=== PATIENT | female | born 1950 | race Caucasian/White ===

== ENCOUNTER 2024-06-06 20:38 | Inpatient (IN) | payer MEDICARE, SELFPAY ==
[2024-06-06 20:45] VITALS: BP 134/62; PULSE 105; RESP 18; TEMP 36.8; O2SAT 98; BMI 16.1
[2024-06-06 21:43] LABS: Lactate Venous 1.3 mmol/L (0.4-2.0); VBG Base Excess 1.4 mmol/L (-2.4-2.3); VBG HCO3 25.7 mmol/L (23-30); VBG Oxygen Saturation 33.2 % (50-70); VBG PCO2 39.7 mmol/L (35-51); VBG PH 7.43 mmol/L (7.31-7.41); VBG PO2 23.7 mmol/L (28-40); VBG Total CO2 26.9 mmol/L (23-27)
[2024-06-06 21:44] LABS: Basophils # 0.1 K/mm3 (0-0.2); Basophils % 0.5 % (0.1-2.0); Eosinophils % 0.1 % (0.1-12.0); Lymphocytes # 1.8 K/mm3 (0.7-4.5); Lymphocytes % 16.6 % (10-50); Mean Corpuscular Volume 58.5 fl (81-99); Mean Platelet Volume 8.6 fl (7.4-10.4); Monocytes # 0.6 K/mm3 (0.1-1.0); Monocytes % 5.9 % (1.7-9.3); Neutrophils # 8.1 K/mm3 (1.8-7.8); Neutrophils % 76.4 % (37.0-80.0); Platelet Count 528 K/mm3 (142-424); Red Blood Count 2.82 M/mm3 (4.20-5.40); Red Cell Distribution Width 19.5 % (11.5-17.5); White Blood Count 10.6 K/mm3 (4.8-10.8)
--- NOTE | 2024-06-06 21:45 | HMH.EDGENADL ---
Discharge Plan Disposition Patient Disposition: Admitted Clinical Impressions Clinical Impression: Fall, Abdominal wall mass, Acute on chronic blood loss anemia Discharge ED Provider: Roni Lyons General Adult HPI General Chief complaint: Fall Stated complaint: loss of balance, weak, chills Time Seen by Provider: 06/06/24 21:05 Mode of Arrival: Wheelchair Source of Information: Patient and Relative Limitations: No Limitations Description of Symptoms (Recalled from ER Triage Doc. by RN): Pt presents for evaluation of frequent falls. Per family patient has fallen about 4 times over the last couple months. Pt also has an mass to her right abdomen that has not been evaluated that has bloody. Pt is not on any blood thinners. Pt has had c/o of left rib pain History of Present Illness HPI narrative: Please note that above description of symptoms, in this electronic medical record under categorization of recalled from ER triage doctor by RN are reflective of an initial nursing assessment, however, is not reflective of my full history and physical exam that was personally taken and clarified. Consequentially, this preceding description of symptoms, which may include the patient's categorized chief complaint in the EMR, do not reflect my personal clinical impression, and the ultimate description of history of present illness and patient stated complaints should be deferred to this section of the note. Unless stated otherwise or congruent with this section of the note, additional signs, symptoms, or incongruence should be interpreted as inaccurate with my clinical impression. Related Data Allergies Allergy/AdvReac Type Severity Reaction Status Date / Time No Known Allergies Allergy Verified 08/07/17 19:45 [facility] Disclaimer: The information contained in this section may have been updated after the patient was seen, as this information can be updated by other users. Social History Smoking Status: Never smoker alcohol intake: current alcohol intake frequency: holidays/special occasions only current occupational status: retired Travel in the last 8 weeks: None Other Medical History Have you received the Flu Vaccine for this season: No ROS Obtained: Yes All systems reviewed & no additional complaints except as documented Physical Exam General General appearance: alert and cachectic Head Head exam: atraumatic and normocephalic Eye Eye exam: Present normal appearance, PERRL and EOMI Neck Neck exam: Present normal inspection, full ROM and trachea midline Respiratory Respiratory exam: Absent respiratory distress, wheezes, stridor, accessory muscle use or prolonged expiratory phase Cardiovascular Cardiovascular exam: Present other (Pulses equal symmetric in upper and lower extremities) Abdominal Exam Abdominal exam: Present soft; Absent distention, tenderness or pulsatile mass Extremities Exam Extremities exam: Absent edema Neurological Exam Neurological exam: Present alert, oriented X3 and CN II-XII intact; Absent motor sensory deficit Skin Skin exam: Present warm, dry, pallor and other (Per MDM); Absent diaphoresis or erythema Medical Decision Making Medical Records Medical records reviewed: Yes I reviewed the patient's medical records. Screening: Per USPSTF and CDC recommendations, given the prevalence of disease in our region, it is our hospital?s policy to screen for HIV and viral Hepatitis for all patients aged 18 and over and those with ongoing risk factors. Cristopher Inquiry Pt receiving controlled substance: No Cristopher was queried for this patient: No Vital Signs: 06/06/24 20:45 06/06/24 23:18 Temperature 98.3 F 98.3 F Temperature Source Oral Pulse Rate 78 Pulse Rate [Right] 105 H Respiratory Rate 18 14 Blood Pressure 147/74 H Blood Pressure [Right Arm] 134/62 Blood Pressure Mean [Right Arm] 86 Blood Pressure Source [Right Arm] Automatic Cuff Blood Pressure Position Sitting Blood Pressure Position [Right Arm] Sitting 02 Sat by Pulse Oximetry 98 Oxygen Delivery Method Room Air Room Air Lab Data Lab Results 06/06/24 21:17: VBG pH 7.43 H, VBG pCO2 39.7, VBG pO2 23.7 L, VBG HCO3 25.7, VBG Total CO2 26.9, VBG O2 Saturation 33.2 L, VBG Base Excess 1.4, VBG Lactic Acid 1.3 06/06/24 21:35: WBC 10.6, RBC 2.82 L, Hgb 3.8 L*, Hct 16.5 L*, MCV 58.5 L, MCH 13.5 L*, MCHC 23.0 L, RDW 19.5 H, Plt Count 528 H, MPV 8.6, Neut % (Auto) 76.4, Lymph % (Auto) 16.6, [place] % (Auto) 5.9, Eos % (Auto) 0.1, Baso % (Auto) 0.5, Neut # (Auto) 8.1 H, Lymph # (Auto) 1.8, [place] # (Auto) 0.6, Eos # (Auto) 0.0, Baso # (Auto) 0.1, Sodium 132 L, Potassium 3.3 L, Chloride 97 L, Carbon Dioxide 28, Anion Gap 10.3, BUN 13, Creatinine 0.80, Estimated Creat Clear 35, Estimated GFR 70, Est GFR ( Amer) 85, Glucose 135 H, Calcium 8.1 L, Total Bilirubin 0.4, AST 22, ALT 11 L, Alkaline Phosphatase 113, Troponin I < 0.01, NT-Pro-B Natriuret Pep 2210 H, Total Protein 7.0, Albumin 3.1 L, Globulin 3.9 H, Albumin/Globulin Ratio 0.8 L, Blood Type A Positive, Blood Type Confirm A Positive, Antibody Screen Negative, Crossmatch ([facility]) See Detail 06/06/24 22:39: Urine Color Yellow, Urine Appearance Clear, Urine pH 6.0, Ur Specific [place] 1.010, Urine Protein Negative, Urine Glucose (UA) Negative, Urine Ketones Negative, Urine Blood Negative, Urine Nitrate Positive A, Urine Bilirubin Negative, Urine Urobilinogen 1.0, Ur Leukocyte Esterase 1+ A, Urine RBC None, Urine WBC 20-50, Ur Squamous Epith Cells Occasional, Urine Bacteria 2+ 06/06/24 21:35 06/06/24 21:35 Orders (Tests/Meds): ED MEDICATIONS Generic Name Dose Route Start Last Admin Trade Name Freq PRN Reason Stop Dose Admin Sodium Chloride 250 mls @ 25 mls/hr 06/06/24 22:15 Sod Chlor 0.9% 250ml Bag IV 06/07/24 22:14 .Q10H SULMA Sodium Chloride 10 ml 06/06/24 21:51 Sodium Chloride 0.9% 10ml Vial IV 07/06/24 21:50 NEEDED PRN to Dilute Lorazepam inj Discontinued Medications Generic Name Dose Route Start Last Admin Trade Name Freq PRN Reason Stop Dose Admin Lactated Ringer's 1,000 mls @ 999 mls/hr 06/06/24 21:17 06/06/24 21:50 Lactated Ringer's 1000 Ml Bag IV 06/06/24 22:17 999 mls/hr .Q1H1M ONE Administration Lorazepam 2 mg 06/06/24 21:51 06/06/24 22:22 Lorazepam 2mg/Ml Vial IV 06/06/24 21:52 Not Given ONCE ONE ORDERS Category Date Time Status Transfuse RBC's [Red Blood Cells] Stat BBK 06/06/24 21:35 Results Type and Screen Stat BBK 06/06/24 21:35 Results CBC w/Auto Diff [Complete Blood Count Auto Diff] Stat Lab 06/06/24 21:35 Completed CMP [Comprehensive Metabolic Panel] Stat Lab 06/06/24 21:35 Completed NT Pro Brain Natriuretic Pep. Stat Lab 06/06/24 21:35 Completed Prealbumin Stat Lab 06/06/24 21:35 Received Trop I [Troponin I] Stat Lab 06/06/24 21:35 Completed Troponin I Q3H Lab 06/07/24 00:30 Ordered Troponin I Q3H Lab 06/07/24 03:30 Ordered UA [Urinalysis and Microscopic] Stat Lab 06/06/24 22:39 Completed Blood Culture Stat Micro 06/06/24 22:00 Received Urine Culture Stat Micro 06/06/24 22:39 Received VBG [Venous Blood Gas] Stat RT 06/06/24 21:17 Completed Medical Decision Narrative: 74-year-old female no relevant medical history presenting with bleeding from masses. Patient states that she has had a mass on her abdomen this been bleeding for years at this point. States that she developed a mass on her left shoulder and on her right leg that have been bleeding for months to years as well. States that she has had syncopal episodes recently that she did not feel coming. Describes them more as near syncopal episodes where she does not lose consciousness, but hits the floor and does not have any prodrome. Has not seen anybody for these bleeding, fungating masses on her body. History obtained with patient and family. On arrival, patient hemodynamically stable, alert, oriented x4, appropriate, GCS 15, moving all extremities spontaneously, pupils equal and reactive to light. Full physical exam performed and significant for cachectic, chronically ill-appearing female who is pale, but no acute distress. She has bleeding, fungating mass on the right side of her abdomen, right side of her knee and left shoulder. Nontachycardic, conjunctival pallor. Differential includes chronic blood loss anemia, high risk syncope, malignancy, benign masses, metabolic abnormality, endocrinologic abnormality, sepsis, among others. Patient placed on continuous cardiac monitoring and continuous pulse ox with initial blood pressure 134/62, heart rate 105, saturation 98% on room air. Patient was given IV fluids for symptomatic management and correction of underlying abnormalities. Workup independently interpreted and significant for hemoglobin of 3.8, no white count, mild thrombocytosis. VBG nonactionable, chemistry largely nonactionable. Troponin negative, BNP elevated. Patient's UA with concern for UTI. ET imaging of the abdomen and pelvis was considered, but not deemed necessary at this time. Nonemergent, but I do feel patient probably needs this for preoperative management with dermatology. On reevaluation, patient resting comfortably. given patient presentation, workup, history, this most likely represents acute on chronic blood loss anemia with syncopal symptoms. I contacted every hospital in the state as well as some out of state, unable to get patient transferred for acute management. Because patient high risk for clinical decompensation, deemed appropriate for inpatient admission. Results were relayed to patient who voiced understanding and patient was agreeable to inpatient admission and management. Patient was admitted to the hospital for further definitive management. Furniture Upholsterer disclaimer Much of this encounter note is an electronic warehouse selector spoken language to printed text. Electronic warehouse selector of the spoken language may permit errors. Although I have reviewed the note, some errors may still exist. Critical Care Critical Care Time Critical Care Time: Yes (Hematologic) Attestation: On 06/06/24, the high probability of a clinically significant, sudden or life threatening deterioration of the following system(s) required my full and direct attention, intervention and personal management. The time I documented below is in addition to time spent performing reported procedures but includes the following listed in this critical care notation. Total Time Total Critical Care Time: 180
[2024-06-06 21:47] LABS: Mean Corpuscular Hemoglobin 13.5 pg (27.0-31.2)
[2024-06-06] MEDS: LACTATED RINGERS 1000ML 1,000 ML 999 ML IV (21:50)
[2024-06-06 21:51] LABS: Hematocrit 16.5 % (37.0-47.0)
[2024-06-06 21:52] LABS: Hemoglobin 3.8 g/dL (12.2-16.2)
[2024-06-06 21:53] LABS: Albumin Level 3.1 g/dl (3.5-5.0); Chloride 97 mmol/L (98-107); Sodium 132 mmol/L (136-145)
[2024-06-06 21:54] LABS: Potassium 3.3 mmoL/L (3.5-5.1)
[2024-06-06 21:56] LABS: Alanine Aminotransferase 11 U/L (12-78); Albumin/Globulin Ratio 0.8 (1.1-1.8); Alkaline Phosphatase 113 U/L (38-126); Anion Gap 10.3 mEq/L (5-15); Aspartate Amino Transferase 22 U/L (14-36); Bilirubin,Total 0.4 mg/dl (0.2-1.3); Blood Urea Nitrogen 13 mg/dl (7-17); Carbon Dioxide 28 mmol/L (22.0-30.0); Creatinine Clearance Estimated 35 mL/min (50-200); Estimated Glomerular Filt Rate 70 ml/min (>60); GFR (African American) 85 ML/MIN (>60); Globulin 3.9 g/dL (1.3-3.2)
--- NOTE | 2024-06-06 21:56 | PC.NURSE ---
Spoke with [place] transfer center, is at full capacity. on a long waitlist at this time. going to follow up with Dr. Lyons to see about moving further.
[2024-06-06 21:57] LABS: Calcium 8.1 mg/dl (8.4-10.2); Glucose 135 mg/dl (74-100)
--- NOTE | 2024-06-06 22:07 | PC.NURSE ---
[facility] has been called and are on a waitlist. notifying doctor.
--- NOTE | 2024-06-06 22:17 | PC.NURSE ---
Spoke with about a transfer, awaiting a call back at this time.
[2024-06-06 22:22] LABS: Troponin I < 0.01 ng/ml (0.00-0.034)
--- NOTE | 2024-06-06 22:29 | PC.NURSE ---
speaking with UC provider at this time
[2024-06-06 22:44] LABS: Microscopic, Urine URINE MICROSCOPIC (MICROSCOPIC)
[2024-06-06 22:45] LABS: Appearance,Urine CLEAR (Clear); Bilirubin,Urine Negative (Negative); Blood, Urine Negative (Negative); Color,Urine YELLOW (Yellow); Glucose,Urine (UA) Negative (Negative); Ketones,Urine Negative (Negative); Leukocyte Esterase,Urine 1+ (Negative); Nitrate,Urine POSITIVE (Negative); Protein,Urine Negative (Negative)
--- NOTE | 2024-06-06 22:50 | PC.NURSE ---
Blood will be ready in approx 25 minutes. [id number]
[2024-06-06 22:53] LABS: Bacteria,Urine 2+ /lpf; Squamous Epithelial Cell,Urine Occasional #/hpf (0-5); WBC,Urine 20-50 #/hpf (0-3)
[2024-06-06 23:07] LABS: NT Pro Brain Natriuretic Pep. 2210 pg/mL (0-125)
--- NOTE | 2024-06-06 23:13 | PC.NURSE ---
report given to Clare GOLDMAN on the floor
[2024-06-06 23:18] VITALS: BP 147/74; PULSE 78; RESP 14; TEMP 36.8; O2SAT 96
[2024-06-06 23:33] VITALS: BP 157/78; PULSE 87; RESP 16; TEMP 36.7; O2SAT 95; BMI 16.0
[2024-06-06 23:47] VITALS: BP 152/77; PULSE 89; RESP 18; TEMP 36.8; O2SAT 95
[2024-06-06] MEDS: 0.9 % SODIUM CHLORIDE 250 ML 25 ML IV (23:50)
[2024-06-06 23:55] VITALS: BP 150/69; PULSE 86; RESP 18; TEMP 36.8; O2SAT 98
[2024-06-07] VITALS (30 sets, daily range): BP systolic 136–163; BP diastolic 65–84; PULSE 67–88; RESP 18–20; TEMP 36.4–37.1; O2SAT 96–100; BMI 16.0
[2024-06-07 00:40] LABS: Troponin I < 0.01 ng/ml (0.00-0.034)
[2024-06-07] MEDS: CEFTRIAXONE 1 GM 1 GM in 0.9 % SODIUM CHLORIDE 50 ML IV (02:30)
--- NOTE | 2024-06-07 02:47 | P.HP_ITS ---
<Statement entered by Leroy Villafuerte MD - 06/09/24 22:59> Personally evaluated patient and agree with plan of care as outlined by the [employer] FOLD OPERATOR. History of Present Illness *Admission Date: 07/08/24 *Reason for visit:: Weakness severe anemia falling, skin lesion/growth *History of present illness: This very pleasant 74-year-old female who looks quite frail, has been brought in by 2 of her granddaughters because she has been falling and is weak and pale. Noting also 3 areas of significant skin growth with weeping and 1 area actually bleeding some. Patient notes that she has not been seen by a doctor since giving childbirth.. She notes that the lesions started small and have continued to grow for quite some time. The patient lives at home with her who has Parkinson's but he does help her get around since she has become weak needing help to walk. Patient is noted being short of breath with low O2 saturations just sitting and talking now. Hemoglobin noted at 3.8. After speaking with the ER physician who tried multiple hospitals. Finding that there are no beds available. Have agreed with him that the patient needs to be admitted for blood transfusion. Plan at this time is to give the patient 2 units of blood we will recheck her level at that time and physical status. Will then consider whether another unit or 2 would be required. Patient is requiring oxygen at this time to keep her saturations up when she talks., Also will contact general surgery question to evaluate the 1 wound on her right abdomen that is a weeping and bleeding some.. Question to be able to remove part of this to where the bleeding can be controlled are cauterized. And that a biopsy may be done. With the patient requiring a blood transfusion has placed that as being a priority tonight and have not thought to do any other excessive imaging or scanning at this time. There may be a very good chance that this has metastasized to other parts of her body. Question whether or not a bone marrow biopsy would be needed. To be able to evaluate whether red blood cells are being produced are hemolyzed. Noting taking care of the patient she is extremely pleasant and quite a polite person who does not appear to be in serious threat and denies any pain at this time. [facility] Disclaimer: The information contained in this section may have been updated after the patient was seen, as this information can be updated by other users. Medical History (Updated 06/07/24 @ 03:05 by Edi Krause APRN) Acute on chronic blood loss anemia Severe anemia Social History (Updated 06/07/24 @ 00:06 by Roni Lyons MD) Smoking Status: Never smoker alcohol intake: current alcohol intake frequency: holidays/special occasions only current occupational status: retired Travel in the last 8 weeks: None Have you lived/traveled outside [place] in past 30 days?: No Contact w/someone who lives/traveled outside US past 30 days?: No Exposure to someone with infectious disease in past 14 days?: No Do you have a fever (greater than 100.4 F or 38 C)?: No Have you tested positive for COVID-19: No Exposed to someone with COVID-19 in past 14 days?: No Do you have a sore throat?: No Do you have a cough?: No Do you have any weakness?: Yes Do you have any diarrhea?: No Are you experiencing any unusual bleeding?: No Do you have any muscle aches/pain?: No Do you have any abdominal pain?: No Are you experiencing loss of taste or smell?: No Other Medical History Have you received the Flu Vaccine for this season: No Have you received the Pneumonia Vaccine: No Review of Systems Review of Systems Review of systems:: pertinent systems reviewed and negative unless documented below Constitutional Constitutional: Reports as per HPI Eyes Eyes: Reports as per HPI ENT Ears, Nose, Mouth, and Throat: Reports as per HPI *Cardiovascular Cardiovascular: Reports as per HPI *Respiratory Respiratory: Reports as per HPI *Gastrointestinal Gastrointestinal: Reports as per HPI *Genitourinary Genitourinary: Reports as per HPI *Musculoskeletal Musculoskeletal: Reports as per HPI Integumentary/Breasts Skin/Breast: Reports as per HPI *Neurologic Neurologic: Reports as per HPI Psychiatric Psychiatric: Reports as per HPI Endocrine Endocrine: Reports as per HPI Hematologic/Lymphatic Hematologic/Lymphatic: Reports as per HPI Allergic/Immunologic Allergic/Immunologic: Reports as per HPI Meds Home Medications and Allergies Home Medications ?Medication ?Instructions ?Recorded ?Confirmed ?Type No Known Home Medications 06/07/24 06/07/24 History New Prescriptions to Start Prescriptions: Allergies Allergy/AdvReac Type Severity Reaction Status Date / Time No Known Allergies Allergy Verified 08/07/17 19:45 Exam Data for Last 24 hours Vital signs and Labs for Last 24 Hours: Temp Pulse Resp BP Pulse Ox O2 Del Method O2 Flow Rate 98.2 F 79 18 155/84 H 100 Room Air 2 06/07/24 01:55 06/07/24 02:25 06/07/24 02:25 06/07/24 02:25 06/07/24 02:25 06/06/24 23:33 06/06/24 23:06 Laboratory Results - last 24 hr 06/06/24 21:17: VBG pH 7.43 H, VBG pCO2 39.7, VBG pO2 23.7 L, VBG HCO3 25.7, VBG Total CO2 26.9, VBG O2 Saturation 33.2 L, VBG Base Excess 1.4, VBG Lactic Acid 1.3 06/06/24 21:35: WBC 10.6, RBC 2.82 L, Hgb 3.8 L*, Hct 16.5 L*, MCV 58.5 L, MCH 13.5 L*, MCHC 23.0 L, RDW 19.5 H, Plt Count 528 H, MPV 8.6, Neut % (Auto) 76.4, Lymph % (Auto) 16.6, [place] % (Auto) 5.9, Eos % (Auto) 0.1, Baso % (Auto) 0.5, Josh t # (Auto) 8.1 H, Lymph # (Auto) 1.8, [place] # (Auto) 0.6, Eos # (Auto) 0.0, Baso # (Auto) 0.1, Sodium 132 L, Potassium 3.3 L, Chloride 97 L, Carbon Dioxide 28, Anion Gap 10.3, BUN 13, Creatinine 0.80, Estimated Creat Clear 35, Estimated GFR 70, Est GFR ( Amer) 85, Glucose 135 H, Calcium 8.1 L, Total Bilirubin 0.4, AST 22, ALT 11 L, Alkaline Phosphatase 113, Troponin I < 0.01, NT-Pro-B Natriuret Pep 2210 H, Total Protein 7.0, Albumin 3.1 L, Globulin 3.9 H, Albumin/Globulin Ratio 0.8 L, Blood Type A Positive, Blood Type Confirm A Positive, Antibody Screen Negative, Crossmatch ([facility]) See Detail 06/06/24 22:39: Urine Color Yellow, Urine Appearance Clear, Urine pH 6.0, Ur Specific [place] 1.010, Urine Protein Negative, Urine Glucose (UA) Negative, Urine Ketones Negative, Urine Blood Negative, Urine Nitrate Positive A, Urine Bilirubin Negative, Urine Urobilinogen 1.0, Ur Leukocyte Esterase 1+ A, Urine RBC None, Urine WBC 20-50, Ur Squamous Epith Cells Occasional, Urine Bacteria 2+ 06/07/24 00:15: Troponin I < 0.01 I & O for Last 24 hours: Intake & Output 06/04/24 06/05/24 06/06/24 06/07/24 05:59 05:59 05:59 05:59 Intake Total 250 / 250 Output Total 0 / 0 Balance 250 / 250 Weight 99 lb 6.4 oz Constitutional Constitutional: mild distress and thin *Routine HEENT Exam Head: Present normocephalic and atraumatic Eye: Present EOMI, PERRL and normal accommodation ENT: Present mucous membranes moist Comments: Pale mucous membranes, pale lips *Routine Neck Exam Neck: Present supple and full ROM Routine Chest/Breast/Axilla Exam Comments: No chest wall tenderness or injury has been found *Routine Respiratory Exam Respiratory: Present accessory muscle use, diminished air movement, normal respiratory effort and able to speak in complete sentences *Routine Cardiovascular Exam Cardiovascular: Present RRR, Normal S1, Normal S2 and murmur Comments: Send no significant holistic cardiac murmur *Routine Abdominal Exam Abdominal: Present soft and normoactive bowel sounds Comments: No tenderness found. *Routine Rectal Exam Rectal:: deferred *Routine Genitalia Exam Genitalia:: deferred *Routine Extremities Exam Extremities: Present pulses intact Comments: Patient is able to walk if given assistance. Can move all extremities Routine Back/Spine/Pelvis Exam Back/Spine: Present full ROM and CVA tenderness Comments: No significant back pain was noted no decrease in ability to ambulate sit move without assistance related to back pain *Routine Skin Exam Skin: Present intact, dry, warm and wounds Comments: Noting that the patient has large skin growths noted on posterior left shoulder right side of the abdomen these skin growths are bulging areas of flesh the one on the abdomen is weeping clear liquid but also some blood. Also on right thigh an area slightly about the same size as the left shoulder extremely elevated almost could call cauliflower looking in observing visually, skin color is not red no signs of cellulitis at this time *Routine Neurological Exam Neurological: Present alert, oriented X3, CN II-XII intact, normal tone, vision grossly intact, hearing grossly intact and normal speech Comments: Patient shows no neurological deficits Routine Psychiatric Exam Psychiatric: Present cooperative, good insight and good judgment Comments: Patient is very calm, stoic ask questions well does not appear to be in distress, she had a conversation with her family and wants to remain a no code H&P: Result Impressions 1. Severe anemia requiring blood transfusions also due to hypoxia and decreased oxygen carrying ability 2. Several advanced skin lesions questionable carcinoma with probable meta test assess Assessment and Plan *Assessment and plan (1) Severe anemia: Status: Acute Category: Medical Code(s): D64.9 - Anemia, unspecified (2) Skin cancer: Status: Acute Category: Medical Code(s): C44.90 - Unspecified malignant neoplasm of skin, unspecified (3) Fall: Status: Acute Qualifiers: Encounter type: initial encounter Qualified Code(s): W19.XXXA - Unspecified fall, initial encounter Category: Medical Code(s): W19.XXXA - Unspecified fall, initial encounter (4) Hypoxia: Status: Acute Category: Medical Code(s): R09.02 - Hypoxemia (5) Cardiac murmur: Status: Acute Category: Medical Code(s): R01.1 - Cardiac murmur, unspecified Plan 1. Patient was requiring help for activities of daily living now., This is probably related to the severe anemia as she is becoming weak probably hypoxia and now is starting to have falls, It is noted the patient has not seen a medical provider for decades. 2. Skin lesions probably skin cancer with advanced as they are would say there is systemic involvement, may be related to the anemia related to bone marrow involvement showing no signs of bruising or active bleeding so do not believe there has hemolysis 3. Will consult general surgery seeing about getting a biopsy. Question whether or not if there is any bleeding at that skin lesion if any type of revision can be done. It is noted that the emergency room tried to find a higher level of care to evaluate this potential cancer but there was no beds available after checking with several hospitals. For this reason the patient has been admitted here and we will start the workup provide the patient with at least 2 units of blood reevaluate and may consider more units after that period of time 4. Due to is a significant cardiac murmur and this low blood count with hypoxia will also consult cardiology.
[2024-06-07 03:52] LABS: Troponin I < 0.01 ng/ml (0.00-0.034)
--- NOTE | 2024-06-07 06:18 | PC.NURSE ---
transfused 2 units this shift with repeat labs at 0730, lab notified to delay 0600 for that time to save the patient an extra poke. see bio for wound descriptions, several - patient ambulates with cane x1. upon arrival to floor o2 dropping to 70/80's at rest in bed - applied 2L NC. at 0540 patient is on RA per request. pt refused SCDs, but theyre at bedside. HTN t/o shift. unable to update medical history because patient states she has none and doesn't go to the dr . two granddaughters at bedside t/o shift
[2024-06-07 10:56] LABS: Basophils # 0.1 K/mm3 (0-0.2); Basophils % 0.6 % (0.1-2.0); Eosinophils % 0.1 % (0.1-12.0); Hematocrit 24.3 % (37.0-47.0); Lymphocytes # 1.3 K/mm3 (0.7-4.5); Mean Corpuscular HGB Conc 28.4 g/dL (31.8-35.4); Mean Corpuscular Hemoglobin 19.2 pg (27.0-31.2); Mean Corpuscular Volume 67.7 fl (81-99); Mean Platelet Volume 8.5 fl (7.4-10.4); Monocytes # 0.6 K/mm3 (0.1-1.0); Monocytes % 6.9 % (1.7-9.3); Neutrophils # 6.5 K/mm3 (1.8-7.8); Neutrophils % 76.3 % (37.0-80.0); Platelet Count 430 K/mm3 (142-424); Red Blood Count 3.59 M/mm3 (4.20-5.40); White Blood Count 8.6 K/mm3 (4.8-10.8)
[2024-06-07 11:03] LABS: Red Cell Distribution Width 27.2 % (11.5-17.5)
[2024-06-07 11:25] LABS: Hemoglobin 6.9 g/dL (12.2-16.2)
[2024-06-07 11:29] LABS: Alanine Aminotransferase 11 U/L (12-78); Albumin Level 2.8 g/dl (3.5-5.0); Albumin/Globulin Ratio 0.8 (1.1-1.8); Alkaline Phosphatase 92 U/L (38-126); Anion Gap 7.3 mEq/L (5-15); Aspartate Amino Transferase 20 U/L (14-36); Bilirubin,Total 1.9 mg/dl (0.2-1.3); Blood Urea Nitrogen 10 mg/dl (7-17); Calcium 7.9 mg/dl (8.4-10.2); Carbon Dioxide 26 mmol/L (22.0-30.0); Chloride 102 mmol/L (98-107); Creatinine Clearance Estimated 35 mL/min (50-200); Estimated Glomerular Filt Rate 70 ml/min (>60); GFR (African American) 85 ML/MIN (>60); Globulin 3.7 g/dL (1.3-3.2); Glucose 93 mg/dl (74-100); Magnesium 1.6 mg/dl (1.6-2.3); Potassium 3.3 mmoL/L (3.5-5.1); Sodium 132 mmol/L (136-145); Total Protein,Serum 6.5 g/dl (6.3-8.2)
[2024-06-07] MEDS: ACETAMINOPHEN 325MG TAB 650 MG PO (11:39)
--- NOTE | 2024-06-07 12:27 | CT_ITS ---
PROCEDURE INFORMATION: Exam: CT Abdomen And Pelvis With Contrast Exam date and time: 06/07/2024 1:31 PM Age: 74 years old Clinical indication: Other: Eval for mets, large skin lesions suspect scc TECHNIQUE: Imaging protocol: Computed tomography of the abdomen and pelvis with contrast. Radiation optimization: All CT scans at this facility use at least one of these dose optimization techniques: automated exposure control; mA and/or kV adjustment per patient size (includes targeted exams where dose is matched to clinical indication); or iterative reconstruction. Contrast material: ISOVUE; Contrast volume: 75 ml; Contrast route: IV; COMPARISON: CT CHEST W CON 04/11/2024 13:31 FINDINGS: Liver: 7.5 x 7.2 x 6.8 cm low-attenuation right lobe liver mass. Gallbladder and biliary ducts: Stones in the gallbladder. Pancreas: Normal. No ductal dilation. Spleen: Normal. No splenomegaly. Adrenal glands: Normal. No mass. Kidneys and ureters: Normal. No hydronephrosis. Stomach and bowel: Unremarkable. No obstruction. No mucosal thickening. Appendix: No evidence of appendicitis. Intraperitoneal space: Unremarkable. No free air. No significant fluid collection. Vasculature: Atherosclerosis. Lymph nodes: Unremarkable. No enlarged lymph nodes. Urinary bladder: Unremarkable as visualized. Reproductive: 4.5 x 6.2 x 6.2 cm right paramidline fluid attenuation structure posterior to the uterus. Bones/joints: Osteopenia. Soft tissues: 1.7 x 5.9 x 6.8 cm lobulated soft tissue mass in the right anterolateral lower abdominal skin and subcutaneous fat. IMPRESSION: 1. 1.7 x 5.9 x 6.8 cm lobulated soft tissue mass in the right anterolateral lower abdominal skin and subcutaneous fat. 2. 7.5 x 7.2 x 6.8 cm low-attenuation right lobe liver mass. In a low-risk patient, further evaluation with non-emergent liver MRI is recommended. In a high-risk patient, further evaluation with non-emergent liver MRI or biopsy is recommended. If biopsy is pursued, core biopsy is preferred over fine-needle aspiration. (Reference: [place]) 3. 4.5 x 6.2 x 6.2 cm right paramidline fluid attenuation structure posterior to the uterus may represent an adnexal cyst. Further evaluation with non-emergent ultrasound is recommended to characterize. (Reference: [facility]) 4. Stones in the gallbladder. 5. Additional chronic/nonemergent findings as detailed above. 6. Lower thoracic findings reported on dedicated CT chest. REFERENCES: 1. Shaan KINSEY, et al. Management of Incidental Liver Lesions on CT: A White Paper of the ACR Incidental Findings Committee. J Am Isabel Radiol. 2017;14(11):0787-3102. 2. Cj et al. Management of Incidental Adnexal Findings on CT and MRI: A White Paper of the ACR Incidental Findings Committee, J Am Isabel Radiol. 2019;17(2):248-254.
--- NOTE | 2024-06-07 12:27 | CT_ITS ---
PROCEDURE INFORMATION: Exam: CT Chest With Contrast; Diagnostic Exam date and time: 06/07/2024 1:31 PM Age: 74 years old Clinical indication: Other: Eval for mets, large skin lesions suspect scc TECHNIQUE: Imaging protocol: Diagnostic computed tomography of the chest with contrast. Radiation optimization: All CT scans at this facility use at least one of these dose optimization techniques: automated exposure control; mA and/or kV adjustment per patient size (includes targeted exams where dose is matched to clinical indication); or iterative reconstruction. Contrast material: ISOVUE; Contrast volume: 75 ml; Contrast route: IV; COMPARISON: CT ABDOMEN PELVIS W CON 04/11/2024 13:31 FINDINGS: Lungs: 3 mm noncalcified nodule in the base of the right upper lobe (series 5, image 38). Streaky airspace disease in the bilateral lower lobes, right middle lobe and lingula. Pleural spaces: Small pleural effusions. Heart: No cardiomegaly. Lymph nodes: Unremarkable. No enlarged lymph nodes. Vasculature: Atherosclerosis. Bones/joints: Osteopenia. Soft tissues: Unremarkable. IMPRESSION: 1. 3 mm noncalcified nodule in the base of the right upper lobe. Fleischner Society follow up recommendations for incidental nodules are not indicated. Follow up per the patient's medical condition. 2. Streaky airspace disease in the bilateral lower lobes, right middle lobe and lingula concerning for pneumonia. 3. Small pleural effusions. 4. Additional chronic/nonemergent findings as detailed above.
[2024-06-07] MEDS: IOPAMIDOL-370 (76%);100ML BOTTLE 75 ML IV (13:32)
--- NOTE | 2024-06-07 16:55 | EXP.DC.SUM ---
General Admission date:: 06/06/24 HPI HPI HPI: This very pleasant 74-year-old female who looks quite frail, has been brought in by 2 of her granddaughters because she has been falling and is weak and pale. Noting also 3 areas of significant skin growth with weeping and 1 area actually bleeding some. Patient notes that she has not been seen by a doctor since giving childbirth.. She notes that the lesions started small and have continued to grow for quite some time. The patient lives at home with her who has Parkinson's but he does help her get around since she has become weak needing help to walk. Patient is noted being short of breath with low O2 saturations just sitting and talking now. Hemoglobin noted at 3.8. After speaking with the ER physician who tried multiple hospitals. Finding that there are no beds available. Have agreed with him that the patient needs to be admitted for blood transfusion. Plan at this time is to give the patient 2 units of blood we will recheck her level at that time and physical status. Will then consider whether another unit or 2 would be required. Patient is requiring oxygen at this time to keep her saturations up when she talks., Also will contact general surgery question to evaluate the 1 wound on her right abdomen that is a weeping and bleeding some.. Question to be able to remove part of this to where the bleeding can be controlled are cauterized. And that a biopsy may be done. With the patient requiring a blood transfusion has placed that as being a priority tonight and have not thought to do any other excessive imaging or scanning at this time. There may be a very good chance that this has metastasized to other parts of her body. Question whether or not a bone marrow biopsy would be needed. To be able to evaluate whether red blood cells are being produced are hemolyzed. Noting taking care of the patient she is extremely pleasant and quite a polite person who does not appear to be in serious threat and denies any pain at this time. Hospital Course Hospital Course Hospital Course: Maria Alejandra Craig is a 74-year-old female who presented with progressive generalized weakness and was admitted for severe symptomatic microcytic anemia. 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 Patient admits that she has had significant sun exposure, and has used tanning beds frequently. ? There are multiple lesions of what seems to be squamous cell carcinoma over her arm, abdomen, lower extremity. ? CT abdomen/pelvis revealed a 7 cm lesion in her liver likely representing metastasis. ? Initial hemoglobin 3.6, improved to 6.9 after 2 units of PRBC transfusion. She was given additional 1 unit PRBC. Weakness improved, ambulating hallways without issues. ? After extensive discussion about further evaluation and management suspected metastatic cancer versus hospice, patient and family ultimately decided to pursue hospice care. ? Case management consulted, will reach out to patient on Sunday for further discussion about hospice. Total time spent on discharge: 32 minutes on chart review, counseling, documentation, and direct care with patient. Exam Data for Last 24 hours Vital signs and Labs for Last 24 Hours: Temp Pulse Resp BP Pulse Ox O2 Del Method O2 Flow Rate 98.3 F 69 18 153/70 H 98 Room Air 2 06/07/24 16:15 06/07/24 16:15 06/07/24 16:15 06/07/24 16:15 06/07/24 16:15 06/07/24 15:00 06/07/24 05:00 Laboratory Results - last 24 hr 06/06/24 21:17: VBG pH 7.43 H, VBG pCO2 39.7, VBG pO2 23.7 L, VBG HCO3 25.7, VBG Total CO2 26.9, VBG O2 Saturation 33.2 L, VBG Base Excess 1.4, VBG Lactic Acid 1.3 06/06/24 21:35: WBC 10.6, RBC 2.82 L, Hgb 3.8 L*, Hct 16.5 L*, MCV 58.5 L, MCH 13.5 L*, MCHC 23.0 L, RDW 19.5 H, Plt Count 528 H, MPV 8.6, Neut % (Auto) 76.4, Lymph % (Auto) 16.6, [place] % (Auto) 5.9, Eos % (Auto) 0.1, Baso % (Auto) 0.5, Neut # (Auto) 8.1 H, Lymph # (Auto) 1.8, [place] # (Auto) 0.6, Eos # (Auto) 0.0, Baso # (Auto) 0.1, Sodium 132 L, Potassium 3.3 L, Chloride 97 L, Carbon Dioxide 28, Anion Gap 10.3, BUN 13, Creatinine 0.80, Estimated Creat Clear 35, Estimated GFR 70, Est GFR ( Amer) 85, Glucose 135 H, Calcium 8.1 L, Total Bilirubin 0.4, AST 22, ALT 11 L, Alkaline Phosphatase 113, Troponin I < 0.01, NT-Pro-B Natriuret Pep 2210 H, Total Protein 7.0, Albumin 3.1 L, Globulin 3.9 H, Albumin/Globulin Ratio 0.8 L, Blood Type A Positive, Blood Type Confirm A Positive, Antibody Screen Negative, Crossmatch ([facility]) See Detail 06/06/24 22:39: Urine Color Yellow, Urine Appearance Clear, Urine pH 6.0, Ur Specific [place] 1.010, Urine Protein Negative, Urine Glucose (UA) Negative, Urine Ketones Negative, Urine Blood Negative, Urine Nitrate Positive A, Urine Bilirubin Negative, Urine Urobilinogen 1.0, Ur Leukocyte Esterase 1+ A, Urine RBC None, Urine WBC 20-50, Ur Squamous Epith Cells Occasional, Urine Bacteria 2+ 06/07/24 00:15: Troponin I < 0.01 06/07/24 03:17: Troponin I < 0.01 06/07/24 10:38: WBC 8.6, RBC 3.59 L D, Hgb 6.9 L D, Hct 24.3 L, MCV 67.7 L, MCH 19.2 L D, MCHC 28.4 L, RDW 27.2 H* D, Plt Count 430 H, MPV 8.5, Neut % (Auto) 76.3, Lymph % (Auto) 15.0, [place] % (Auto) 6.9, Eos % (Auto) 0.1, Baso % (Auto) 0.6, Neut # (Auto) 6.5, Lymph # (Auto) 1.3, [place] # (Auto) 0.6, Eos # (Auto) 0.0, Baso # (Auto) 0.1, Sodium 132 L, Potassium 3.3 L, Chloride 102, Carbon Dioxide 26, Anion Gap 7.3, BUN 10, Creatinine 0.80, Estimated Creat Clear 35, Estimated GFR 70, Est GFR ( Amer) 85, Glucose 93 D, Calcium 7.9 L, Magnesium 1.6, Total Bilirubin 1.9 H, AST 20, ALT 11 L, Alkaline Phosphatase 92, Total Protein 6.5, Albumin 2.8 L, Globulin 3.7 H, Albumin/Globulin Ratio 0.8 L I & O for Last 24 hours: Intake & Output 06/04/24 06/05/24 06/06/24 06/07/24 23:59 23:59 23:59 23:59 Intake Total 0 / 0 1220 / 1220 Output Total 0 / 0 Balance 0 / 0 1220 / 1220 Weight 45.087 kg 45.087 kg Microbiology Reports for the Last 24 Hours: Microbiology 06/06/24 22:39 Urine,Clean Catch Urine Culture - Preliminary Constitutional Constitutional: no acute distress *Routine HEENT Exam Head: Present normocephalic Eye: Present EOMI and PERRL ENT: Present mucous membranes moist *Routine Neck Exam Neck: Present supple; Absent lymphadenopathy *Routine Respiratory Exam Respiratory: Present CTA bilaterally *Routine Cardiovascular Exam Cardiovascular: Present RRR *Routine Abdominal Exam Abdominal: Present soft and normoactive bowel sounds; Absent tenderness *Routine Extremities Exam Extremities: Absent cyanosis, clubbing or edema *Routine Skin Exam Skin: Present warm and lesions; Absent rash *Routine Neurological Exam Neurological: Present alert and oriented X3 Results Data Completed and Pending Labs on day of discharge: Labs from last 24 hours 06/07/24 06/07/24 06/07/24 10:38 03:17 00:15 WBC 8.6 RBC 3.59 L D Hgb 6.9 L D Hct 24.3 L MCV 67.7 L MCH 19.2 L D MCHC 28.4 L RDW 27.2 H* D Plt Count 430 H MPV 8.5 Neut % (Auto) 76.3 Lymph % (Auto) 15.0 [place] % (Auto) 6.9 Eos % (Auto) 0.1 Baso % (Auto) 0.6 Neut # (Auto) 6.5 Lymph # (Auto) 1.3 [place] # (Auto) 0.6 Eos # (Auto) 0.0 Baso # (Auto) 0.1 VBG pH VBG pCO2 VBG pO2 VBG HCO3 VBG Total CO2 VBG O2 Saturation VBG Base Excess VBG Lactic Acid Sodium 132 L Potassium 3.3 L Chloride 102 Carbon Dioxide 26 Anion Gap 7.3 BUN 10 Creatinine 0.80 Estimated Creat Clear 35 Estimated GFR 70 Est GFR ( Amer) 85 Glucose 93 D Calcium 7.9 L Magnesium 1.6 Total Bilirubin 1.9 H AST 20 ALT 11 L Alkaline Phosphatase 92 Troponin I < 0.01 < 0.01 NT-Pro-B Natriuret Pep Total Protein 6.5 Albumin 2.8 L Globulin 3.7 H Albumin/Globulin Ratio 0.8 L Urine Color Urine Appearance Urine pH Ur Specific [place] Urine Protein Urine Glucose (UA) Urine Ketones Urine Blood Urine Nitrate Urine Bilirubin Urine Urobilinogen Ur Leukocyte Esterase Urine RBC Urine WBC Ur Squamous Epith Cells Urine Bacteria Blood Type Blood Type Confirm Antibody Screen Crossmatch ([facility]) 06/06/24 06/06/24 06/06/24 22:39 21:35 21:17 WBC 10.6 RBC 2.82 L Hgb 3.8 L* Hct 16.5 L* MCV 58.5 L MCH 13.5 L* MCHC 23.0 L RDW 19.5 H Plt Count 528 H MPV 8.6 Neut % (Auto) 76.4 Lymph % (Auto) 16.6 [place] % (Auto) 5.9 Eos % (Auto) 0.1 Baso % (Auto) 0.5 Neut # (Auto) 8.1 H Lymph # (Auto) 1.8 [place] # (Auto) 0.6 Eos # (Auto) 0.0 Baso # (Auto) 0.1 VBG pH 7.43 H VBG pCO2 39.7 VBG pO2 23.7 L VBG HCO3 25.7 VBG Total CO2 26.9 VBG O2 Saturation 33.2 L VBG Base Excess 1.4 VBG Lactic Acid 1.3 Sodium 132 L Potassium 3.3 L Chloride 97 L Carbon Dioxide 28 Anion Gap 10.3 BUN 13 Creatinine 0.80 Estimated Creat Clear 35 Estimated GFR 70 Est GFR ( Amer) 85 Glucose 135 H Calcium 8.1 L Magnesium Total Bilirubin 0.4 AST 22 ALT 11 L Alkaline Phosphatase 113 Troponin I < 0.01 NT-Pro-B Natriuret Pep 2210 H Total Protein 7.0 Albumin 3.1 L Globulin 3.9 H Albumin/Globulin Ratio 0.8 L Urine Color Yellow Urine Appearance Clear Urine pH 6.0 Ur Specific [place] 1.010 Urine Protein Negative Urine Glucose (UA) Negative Urine Ketones Negative Urine Blood Negative Urine Nitrate Positive A Urine Bilirubin Negative Urine Urobilinogen 1.0 Ur Leukocyte Esterase 1+ A Urine RBC None Urine WBC 20-50 Ur Squamous Epith Cells Occasional Urine Bacteria 2+ Blood Type A Positive Blood Type Confirm A Positive Antibody Screen Negative Crossmatch ([facility]) See Detail Preliminary micro results at discharge 06/06/24 22:39 Urine Culture - Preliminary Urine,Clean Catch DS: Diagnosis Discharge Diagnosis (1) Severe anemia: Status: Acute Code(s): D64.9 - Anemia, unspecified (2) Skin cancer: Status: Acute Code(s): C44.90 - Unspecified malignant neoplasm of skin, unspecified (3) Fall: Status: Acute Code(s): W19.XXXA - Unspecified fall, initial encounter Qualifiers: Encounter type: initial encounter Qualified Code(s): W19.XXXA - Unspecified fall, initial encounter (4) Hypoxia: Status: Acute Code(s): R09.02 - Hypoxemia (5) Cardiac murmur: Status: Acute Code(s): R01.1 - Cardiac murmur, unspecified Meds Home Medications and Allergies Home Medications ?Medication ?Instructions ?Recorded ?Confirmed ?Type No Known Home Medications 06/07/24 06/07/24 History New Prescriptions to Start Prescriptions: Allergies Allergy/AdvReac Type Severity Reaction Status Date / Time No Known Allergies Allergy Verified 08/07/17 19:45 Discharge Plan Disposition Patient Disposition: Home, Self-Care Condition: Fair Discharge Order Discharge Orders: Discharge Order (Routine); Ordered 06/07/24 Ordered By: Leryo Villafuerte Follow up Plan Follow up with: Vlad Corcoran MD [Staff Physician] - Enter time for follow up Aston Hoover MD [Staff Physician] - Enter time for follow up Prescriptions/Medication Reconciliation: No Action No Known Home Medications Problem Reconciliation Problems Reviewed?: Yes Patient Discharge Instructions Patient Instructions: Anemia Print Language: Vincentian Providers Primary Care Provider: Provider,Referral Admit Provider: Leroy Villafuerte Attending Provider: Leroy Villafuerte
--- NOTE | 2024-06-07 17:06 | HMH.PTEV ---
Physical Therapy Evaluation Rehab PT IP Evaluation Start: 06/07/24 03:10 Freq: ONCE Status: Active Protocol: Document 06/07/24 16:25 PDESEROUX (Rec: 06/07/24 17:06 PDESEROUX [id number]) Subjective/History History History Pt. is a 74 year old female who presents to [address] [facility] Inpatient w/ a PMH of anemia. Pt. reports she was admitted to the hospital by her granddaughter secondary to concern for pt.'s increasing falls, fatigue, and weakness. Pt.'s granddaughter vocalized initially wanting to take pt. to her family doctor, however, upon giving pt. a shower at home her granddaughter noticed multiple lumps on the pt.'s body so instead admitted pt. to the hospital per granddaughter's report. Pt. reports having an increasing number of falls over the last several months w/o self- explanation of why she has fallen. Pt. denies loss of consciousness, denies dizziness, states, I just go down. Pt. currently lives w/ (whom has Parkinson's disease) and two granddaughters in a two-story home, however, ADL function performed on the first floor. Pt. reports having one step to enter into home environment. Pt. reports ambulating w/ SPC at home and in the community. Pt. reports her holds my hand when ambulating in the house, and her granddaughter will assist pt. upon community ambulation. Pt. 's granddaughter expresses high concern for pt.'s skin lesions and increasing falls over the last several of months. Subjective Subjective Pt. was awake and recumbent in hospital bed receiving a blood transfusion upon entering into pt.'s room after being granted permission by pt. and pt.'s family. Pt.'s and two granddaughters were sitting bedside at the time. Pt. denies having any P! at this time. Physical Therapist did not assess pt.'s ambulatory status at this time secondary to most recent lab values being below the recommendation levels for ambulation, will reassess values upon return for ambulation. Pt. was left recumbent in hospital bed w/ call light in reach and family at bedside. New diagnosis of cancer in past 12 No months? Rehab PT IP Eval Objective Appearance Patient Behavior Appropriate,Cooperative, Fatigued Patient Orientation Person,Place,Situation Difficulty following instructions none Speech Pattern Clear,Appropriate,Coherent Ambulation Patient Able to Ambulate No Balance Ability to Arise Able, w/o using arms Sitting Balance Steady, safe Dynamic Sitting Balance Ability Good Transfers Bed Transfer Ability Minimal x 1 (25% assist) ROM RLE PT ROM Status WFL LLE PT ROM Status WFL MMT RLE PT MMT WFL LLE PT MMT WFL Rehab PT IP prob,goals,plan Problems Date of Evaluation: 06/07/24 PT IP Problems Transfers,Gait,Balance,Self care,Safety Rehab Potential Rehab Potential Good Equipment Needs Assistive Devices Straight Cane Plan PT Intervention Plan Transfers,Gait,Balance,Self care,Safety,Therapeutic Exercise PT Plan Frequency BID Duration LOS Discharge Goals Bed Transfer Ability Supervision/Stand by Sit to Stand Chair Transfer Ability Contact Guard/Hand Hold Ambulation Assistive Device Straight Cane Ambulation Distance (feet) 15 Discharge Plan PT Discharge Plan Pt. currently presents below functional mobility baseline requiring assistance w/ transfers, ambulation, and standing tasks likely due to diagnosis of anemia. Pt. will benefit from skilled PT while at [facility] and is currently most appropriate for short-term rehab. to address the mobility deficits. However, if the pt. continues to improve medically and w/ overall mobility during stay she may be appropriate to discharge home w/ family assistance and HHPT. Without skilled PT, the pt. is at increased risk for falls, wounds, further functional decline, and increased burden of care. Eval Complexity Eval Charge Codes 64036 - Moderate Complexity PHYSICIAN CERTIFICATION: I certify the specified therapy services for Maria Alejandra Craig are required, authorized, and reviewed every 30 days.
--- NOTE | 2024-06-07 17:24 | PC.NURSE ---
pt resting supine in bed with family at bedside. one unit of rbc transfused this shift for hgb of 6.9. redraw scheduled for 1899. CT of abdomen today showed mets to the liver. pt and family made aware of findings by hospitalist. discussion regarding treatment/possible hospice between hospitalist and family. family verbalized that they needed to evaluate options. pt tolerating ra well, hypertensive. dressings to masses changed this shift. pt complained of pain in the buttocks area once and was treated per jun. no needs at this time. call light within reach.
[2024-06-08 09:10] LABS: Prealbumin 4 mg/dL (9-32)
--- NOTE | 2024-06-09 09:07 | SW/DCPLANNER ---
Faxed a referral packet to hospice. [place] spoke with Nancy on the phone. Will update when we hear back from Hospice. Gladys ROSE Motorcycle Delivery Driver
--- NOTE | 2024-06-10 11:09 | SW/DCPLANNER ---
Spoke with patient on the phone. Patient stated that she is doing well. Patient stated that her daughter has called to schedule her appointments. Patient stated that she wasnt on any medicine when she came in and that they didnt prescribe her any new medicine when she was discharged. Patient stated that she has no concern or questions at this time. Gladys Foley
== END 2024-06-07 18:20 | disposition home or self-care (01) | DRG 607 ==
LOC: ER 21:14 → 2ND 23:05
PROVIDERS: Nurse Practitioner Family; Admitting Provider Student in an Organized Health Care Education/Training Program; Emergency Provider Emergency Medicine; Visit Provider Student in an Organized Health Care Education/Training Program
DX: C44.90 Unspecified malignant neoplasm of skin, unspecified (principal); R64 Cachexia; Z68.1 Body mass index [BMI] 19.9 or less, adult; D63.0 Anemia in neoplastic disease; R01.1 Cardiac murmur, unspecified; R09.02 Hypoxemia; S31.103A Unspecified open wound of abdominal wall, right lower quadrant without penetration into peritoneal cavity, initial encounter; R53.1 Weakness; V00-Y99 External causes of morbidity; Z91.81 History of falling; Z74.1 Need for assistance with personal care
CPT/HCPCS: 36415; 71260; 74177; 80053; 81001; 82803; 83735; 83880; 84134; 84484; 85025; 86850; 87040; 87086; 87088; 87186; 97162; 99291; 99292; J0696; J7120; P9016; Q9967

== ENCOUNTER 2024-07-02 12:37 | Outpatient (CLI) | payer OTHER, SELFPAY ==
[2024-07-02 12:47] LABS: Hematocrit 28.2 % (37.0-47.0); Hemoglobin 8.3 g/dL (12.2-16.2)
== END 2024-07-02 23:59 | disposition home or self-care (01) ==
LOC: LAB.DROPOF 12:39
PROVIDERS: Family Medicine; PCP Radiology Diagnostic Radiology; Visit Provider Radiology Diagnostic Radiology
DX: R16.0 Hepatomegaly, not elsewhere classified (principal)
CPT/HCPCS: 85014; 85018

== ENCOUNTER 2024-07-09 14:37 | Outpatient (CLI) | payer OTHER, SELFPAY ==
[2024-07-09 15:26] LABS: Basophils # 0.1 K/mm3 (0-0.2); Basophils % 0.6 % (0.1-2.0); Eosinophils # 0.1 K/mm3 (0.0-0.4); Eosinophils % 0.7 % (0.1-12.0); Hematocrit 25.7 % (37.0-47.0); Hemoglobin 7.6 g/dL (12.2-16.2); Lymphocytes # 1.5 K/mm3 (0.7-4.5); Lymphocytes % 18.2 % (10-50); Mean Corpuscular HGB Conc 29.6 g/dL (31.8-35.4); Mean Corpuscular Hemoglobin 22.8 pg (27.0-31.2); Mean Corpuscular Volume 77.2 fl (81-99); Mean Platelet Volume 8.6 fl (7.4-10.4); Monocytes # 0.5 K/mm3 (0.1-1.0); Monocytes % 6.3 % (1.7-9.3); Neutrophils # 6.1 K/mm3 (1.8-7.8); Platelet Count 448 K/mm3 (142-424); Red Blood Count 3.33 M/mm3 (4.20-5.40); Red Cell Distribution Width 24.5 % (11.5-17.5); White Blood Count 8.3 K/mm3 (4.8-10.8)
== END 2024-07-09 23:59 | disposition home or self-care (01) ==
LOC: LAB.DROPOF 14:38
PROVIDERS: PCP Family Medicine; Visit Provider Family Medicine Hospice and Palliative Medicine
DX: R16.0 Hepatomegaly, not elsewhere classified (principal)
CPT/HCPCS: 36415; 85025

== ENCOUNTER 2024-07-16 12:03 | Outpatient (CLI) | payer OTHER, SELFPAY ==
[2024-07-16 12:22] LABS: Hemoglobin 7.6 g/dL (12.2-16.2)
== END 2024-07-16 23:59 | disposition home or self-care (01) ==
LOC: LAB 12:04
PROVIDERS: PCP Family Medicine; Visit Provider Family Medicine
DX: R16.0 Hepatomegaly, not elsewhere classified (principal); D64.9 Anemia, unspecified
CPT/HCPCS: 85014; 85018

== ENCOUNTER 2024-07-23 11:50 | Outpatient (CLI) | payer OTHER, SELFPAY ==
[2024-07-23 12:00] LABS: Hematocrit 30.1 % (37.0-47.0); Hemoglobin 9.2 g/dL (12.2-16.2)
== END 2024-07-23 23:59 | disposition home or self-care (01) ==
LOC: LAB.DROPOF 11:51
PROVIDERS: PCP Family Medicine; Visit Provider Family Medicine
DX: R16.0 Hepatomegaly, not elsewhere classified (principal); D64.9 Anemia, unspecified
CPT/HCPCS: 85014; 85018

== ENCOUNTER 2024-07-30 11:43 | Outpatient (CLI) | payer OTHER, SELFPAY ==
[2024-07-30 12:00] LABS: Hematocrit 26.3 % (37.0-47.0); Hemoglobin 7.7 g/dL (12.2-16.2)
== END 2024-07-30 23:59 | disposition home or self-care (01) ==
LOC: LAB.DROPOF 11:48
PROVIDERS: PCP Family Medicine; Visit Provider Family Medicine
DX: R16.0 Hepatomegaly, not elsewhere classified (principal); D64.9 Anemia, unspecified
CPT/HCPCS: 85014; 85018

== ENCOUNTER 2024-08-01 08:57 | Outpatient (CLI) | payer MEDICARE, SELFPAY ==
[2024-08-01] VITALS (10 sets, daily range): BP systolic 114–165; BP diastolic 72–91; PULSE 73–84; RESP 15–16; TEMP 36.6–36.9; O2SAT 99; BMI 16.6
[2024-08-01] MEDS: 0.9 % SODIUM CHLORIDE 250 ML 25 ML IV (11:00)
--- NOTE | 2024-08-01 11:17 | PC.NURSE ---
1113-Blood transfusion started at 100 ml/hr at this time.
--- NOTE | 2024-08-01 12:37 | PC.NURSE ---
1143-Increased rate to 150 ml/hr at this time.
--- NOTE | 2024-08-01 14:08 | PC.NURSE ---
1213-Increased rate to 200 ml/hr at this time.
== END 2024-08-01 14:15 | disposition home or self-care (01) ==
LOC: INF 08:58
PROVIDERS: PCP Family Medicine; Visit Provider Family Medicine
DX: D64.9 Anemia, unspecified (principal)
CPT/HCPCS: 36430; 86850; P9016

== ENCOUNTER 2024-08-06 11:09 | Outpatient (CLI) | payer OTHER, SELFPAY ==
[2024-08-06 11:19] LABS: Hematocrit 31.5 % (37.0-47.0); Hemoglobin 9.5 g/dL (12.2-16.2)
== END 2024-08-06 23:59 | disposition home or self-care (01) ==
LOC: LAB.DROPOF 11:11
PROVIDERS: PCP Family Medicine; Visit Provider Family Medicine
DX: D64.9 Anemia, unspecified (principal); C80.1 Malignant (primary) neoplasm, unspecified
CPT/HCPCS: 85014; 85018

== ENCOUNTER 2024-08-13 11:21 | Outpatient (CLI) | payer OTHER, SELFPAY ==
[2024-08-13 11:30] LABS: Hematocrit 29.9 % (37.0-47.0)
== END 2024-08-13 23:59 | disposition home or self-care (01) ==
LOC: LAB.DROPOF 11:22
PROVIDERS: PCP Family Medicine; Visit Provider Family Medicine
DX: D64.9 Anemia, unspecified (principal)
CPT/HCPCS: 85014; 85018

== ENCOUNTER 2024-08-20 12:15 | Outpatient (CLI) | payer OTHER, SELFPAY ==
[2024-08-20 12:55] LABS: Hematocrit 30.6 % (37.0-47.0); Hemoglobin 9.2 g/dL (12.2-16.2)
== END 2024-08-20 23:59 | disposition home or self-care (01) ==
LOC: LAB.DROPOF 12:17
PROVIDERS: PCP Family Medicine; Visit Provider Family Medicine
DX: C80.1 Malignant (primary) neoplasm, unspecified (principal); D64.9 Anemia, unspecified
CPT/HCPCS: 85014; 85018

== ENCOUNTER 2024-08-27 11:56 | Outpatient (CLI) | payer OTHER, SELFPAY ==
[2024-08-27 12:29] LABS: Hematocrit 31.2 % (37.0-47.0); Hemoglobin 9.3 g/dL (12.2-16.2)
== END 2024-08-27 23:59 | disposition home or self-care (01) ==
LOC: LAB.DROPOF 11:57
PROVIDERS: PCP Family Medicine; Visit Provider Family Medicine
DX: R16.0 Hepatomegaly, not elsewhere classified (principal); D64.9 Anemia, unspecified
CPT/HCPCS: 85014; 85018

== ENCOUNTER 2024-09-03 10:50 | Outpatient (CLI) | payer OTHER, SELFPAY ==
[2024-09-03 11:03] LABS: Hematocrit 29.9 % (37.0-47.0)
== END 2024-09-03 23:59 | disposition home or self-care (01) ==
LOC: LAB.DROPOF 10:51
PROVIDERS: PCP Family Medicine; Visit Provider Family Medicine
DX: D64.9 Anemia, unspecified (principal); R16.0 Hepatomegaly, not elsewhere classified
CPT/HCPCS: 85014; 85018

== ENCOUNTER 2024-09-11 10:20 | Outpatient (CLI) | payer OTHER, SELFPAY ==
[2024-09-11 10:55] LABS: Hematocrit 30.3 % (37.0-47.0)
== END 2024-09-11 23:59 | disposition home or self-care (01) ==
LOC: LAB.DROPOF 10:21
PROVIDERS: PCP Family Medicine; Visit Provider Family Medicine
DX: R16.0 Hepatomegaly, not elsewhere classified (principal)
CPT/HCPCS: 85014; 85018

== ENCOUNTER 2024-09-25 13:30 | Outpatient (CLI) | payer OTHER, SELFPAY ==
[2024-09-25 13:51] LABS: Hematocrit 31.3 % (37.0-47.0); Hemoglobin 9.4 g/dL (12.2-16.2)
== END 2024-09-25 23:59 | disposition home or self-care (01) ==
LOC: LAB.DROPOF 13:31
PROVIDERS: PCP Family Medicine; Visit Provider Family Medicine
DX: D64.9 Anemia, unspecified (principal); R16.0 Hepatomegaly, not elsewhere classified
CPT/HCPCS: 85014; 85018

== ENCOUNTER 2024-10-22 11:51 | Outpatient (CLI) | payer OTHER, SELFPAY ==
--- OUTSIDE RECORDS SUMMARY | 2024-06-12 12:00 | XMS_ITS ---
[facility] Address [address] [place] [id number] Care Team Providers Care Wood Experimental Mechanic Name Role Phone Lonnie Nickerson Primary Care Provider [phone] Allergies No Known Allergies REASON FOR VISIT [facility] ER f/u anemia, needs cbc Encounters Encounter Location Date Provider Diagnosis [place] [address] [facility] 36 [facility] [address] [place] [id number] 06/12/2024 Lonnie Nickerson Assessments Encounter Date Diagnosis (ICD Code) Assessment Notes Treatment Notes Treatment Clinical Notes Section Notes 06/12/2024 Other Discharge summary with available lab/diagnostic imaging results obtained and reviewed. Discharge medication list reconciled. Appropriate counseling provided. Moderate Complexity Plan Of Treatment Treatment Notes Assessment Notes Other Discharge summary wi th available lab/diagnostic imaging results obtained and reviewed. Discharge medication list reconciled. Appropriate counseling provided. Moderate Complexity Progress Notes * MELIZAVERONICA SIMMONSADOB:1950 (74 yo F)Acc No.[id number]:06/12/2024 Progress Notes Patient: NATIVIDAD CONTEH Provider: Lonnie Nickerson M.D. :1950 A ge:74 Y S ex:Female Date:06/12/2024 Address:[facility] [place] [address] [address] [id number] Subjective: * Chief Complaints: * [address] [facility] ER f/u anemia, needs cbc. * HPI: H PI: Patient is here today for a Transition of Care Visit. Discharge from the following Facility: [facility] for anemia and newly diagnosed cancer ,Discharge date: ,Date of phone contact following discharge: 06/09/2024.? * ROS: A LLERGY: no R unny nose. n o S cratchy throat. ? R ESPIRATORY: no S hortness of breath. n o C hest pain. ? C ARDIOLOGY: no P alpitations. n o L eg edema. C ONSTITUTIONAL: no L oss of appetite. n o W eakness. ? D ERMATOLOGY: no R jamil. n o H juan. E NDOCRINOLOGY: no P olydypsia. n o P olyuria. E NT: no C old. n o C ough. M USCULOSKELETAL: no J oint pain. n o J oint swelling. ? N EUROLOGY: no H eadache. n o T ingling numbness. ? O PTHALMOLOGY: no E ye irritation. n o D rainage from eyes. ? P SYCHOLOGY: no H igh stress level. n o S leep disturbances.? U ROLOGY: no D ifficulty urinating. n o B lood in urine. * Medical History: M edical History Verified. * Surgical History: sal lewis 1984. * Family History: F ather: 49 yrs, Lymphoma. M other: alive 94 yrs, HBP, Skin Cancer. 2 brother(s) , 1 sister(s) . 1 daughter(s) . . * Social History: C URRENT TOBACCO USE S moking Status: Patient does NOT smoke, Second hand smoke exposure: No. C affeine: yes, coffee, daily. Exercise: yes, wallking. Home smoke detector use: yes. Recreational drug use: no. Alcohol: Yes, Type: mixed drinks once a year , Frequency: ,Years: , Determination:. * Allergies: N .K.D.A. Objective: * Vitals: Assessment: Plan: * Treatment: * Procedure Codes: 9 9495 TRANS CARE MGMT 14 DAY DISCH, 1111F DSCHR MED/CURENT MED MERGE, G2211 Complex e/m visit add on * Images: Billing Information: * Visit Code: * Procedure Codes: 81118 TRANS CARE MGMT 14 DAY DISCH. 1111F DSCHR MED/CURENT MED MERGE. G2211 Complex e/m visit add on. * Electronic signature of R Reilly Nickerson MD on 10/22/2024 at 11:53 AM EDT Sign off status: Pending * Provider: Lonnie Nickerson M.D. Date: 0 06/12/2024 Generated for Latisha zimmerman/Allison/Manny on: 0 10/22/2024 11:53 AM EDT History and Physical Notes * HPI (History of Present Illness) Category Sub-Category Detail Notes Category Not es HPI Patient is here today for a [facility] sition of Care Visit. Discharge from the following Facility: [facility] for anemia and newly diagnosed cancer ,Discharge date: 06/07/2024 ,Date of phone contact following discharge: 06/09/2024
--- OUTSIDE RECORDS SUMMARY | 2024-06-24 10:30 | XMS_ITS ---
Author Organization [facility] Address [address] [place] [id number] Care Team Providers Care Finisher Brush Name Role Phone Lonnie Nickerson Primary Care Provider Allergies No Known Allergies Results Component Value Reference Range Notes CBC Fingerstick (in house) Reviewed date:06/24/2024 05:27:03 PM Interpretation: Performing Lab: Notes/Report: wbc 10.9 3.5 - 10 lym 27.7 15 - 50 mid 7.7 2 - 15 gran 64.6 35 - 80 rbc 3.87 3.5 - 5.5 hgb 8.9 11.5 - 16.5 hct 28.1 35 - 55 mcv 72.6 75 - 100 mch 23.0 25 - 35 mchc 31.7 31 - 38 plat 308 100 - 400 REASON FOR VISIT To get re-established, needs labs Problems Problem Type SNOMED Code ICD Code Onset Dates Problem Status W/U Status Risk Notes Problem Anemia in neoplastic disease (363718988) 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 Vital Signs Blood pressure systolic 116 mm Hg 06/25/19 25 Blood pressure diastolic 78 mm Hg 025 Heart Rate 83 /min 06/24/2024 Weight 98.4 lbs 06/24/2024 Encounters Encounter Location Date Provider Diagnosis [place] 1210 [facility] 36 [facility] [address] [place] [id number] 06/24/2024 Lonnie Nickerson Cancer C80.1 and Anemia in neoplastic disease D63.0 Assessments Encounter Date Diagnosis (ICD Code) Assessment Notes Treatment Notes Treatment Clinical Notes Section Notes 06/24/2024 Cancer (ICD-10 - C80.1) -- unknown primary Continue hospice care 06/24/2024 Anemia in neoplastic disease (ICD-10 - D63.0) Anemia appears stable and has improved since discharge from the hospital. Will have hospitalist continue to monitor weekly H&H to ensure stability. Plan Of Treatment Treatment Notes Assessment Notes Cancer Continue hospice car e Anemia in neoplastic disease Anemia appe ars stable and has improved since discharge from the hospital. Will have hospitalist continue to monitor weekly H&H to ensure stability. Next Appt Details Follow Up: prn, Reason: Progress Notes * MORRO CRAIGB:1950 (74 yo F)Acc No.[id number]:06/24/2024 Progress Notes Patient: MARIA ALEJANDRA CONTEH Provider: Lonnie Nickerson M.D. :1950 A ge:74 Y S ex:Female Date:06/24/2024 Address:[address] [place] [address] [address] [facility] Subjective: * Chief Complaints: * 1 . To get re-established, needs labs. * HPI: H PI: Maria Alejandra comes in today accompanied by her daughter and granddaughter to establish care. She has been seen once in this office in 2011 and was recently admitted to [facility] with progressive weakness and falls. She was found to be severely anemic with a hemoglobin of 3.8. She apparently has had fungating skin lesions on her shoulder, left arm, and abdomen for many years that have been bleeding periodically. Workup while in the hospital included a CT scan of the abdomen which showed a large liver lesion and a cystic mass in the pelvis. Considering her presentation, these were presumed to be malignant and she declined further evaluation by way of biopsy and has elected hospice care. She received 3 units of blood during the admission which improved her symptoms of weakness and falls. Last hemoglobin I have on record from the hospital was 6.9. She has now been admitted to hospice. She comes in today to reestablish care and for recheck of her hemoglobin. She denies pain. No complaints of nausea or vomiting. She states her bowels are moving normally. She has lost considerable weight and family notes she is eating small amounts. Her goal is measures of comfort and would like to be able to go on vacation with her family as planned in September. 74 year old female presents with c/o Patient is here today for?Pt is here today to get re established and would like labs done. Pt sts she was in the hospital at the end of May. Pt sts her hemoglobin was 3.9 and sts when she left the hospital she was told to f/u with her PCP to recheck her hemoglobin. Pt daughter sts she is now under hospice care. * ROS: A LLERGY: no R unny [...] B lood in urine. * Medical History: Silvia huang has skin cancer as well as places on her uterus and liver. Pt did not want chemo treatment. Hospice. * Surgical History: t ubal 1984. * Family History: F ather: 49 yrs, Lymphoma, diagnosed with Cancer. M other: alive 94 yrs, HBP, Skin Cancer, diagnosed with Hypertension. 2 brother(s) , 1 sister(s) . 1 daughter(s) . . mom had hypertension dad and 1 brother had cancer. * Social History: C URRENT TOBACCO USE S moking Status: Patient does NOT smoke, Second hand smoke exposure: No. C affeine: yes, coffee, daily. Exercise: yes, wallking. Home smoke detector use: yes. Recreational drug use: no. Alcohol: Yes, Type: mixed drinks once a year , Frequency: ,Years: , Determination:. * Medications: N one * Allergies: N .K.D.A. Objective: * Vitals: W t:98.4, Temp:97.7, BP:116/78, HR:83, O2 Sat:98% on RA, Nurse:satish. * Examination: G eneral Examination: S he comes in by wheelchair. She is alert and oriented. Color is somewhat pale. HEENT shows moist mucous membranes. No obvious jaundice. Lungs are clear to auscultation. Heart is regular with no murmurs. She has 3 fungating skin lesions, the largest of which is on the right abdomen. These are covered with a dressing today and are not disturbed to avoid further bleeding. Family shows me photographs on their phone. Assessment: * Assessment: 1. C ancer - C80.1 (Primary) N otes :-- unknown primary 2 . A nemia in neoplastic disease - D63.0 Plan: * Treatment: 2. A nemia in neoplastic disease Notes: Anemia appears stable and has improved since discharge from the hospital. Will have hospitalist continue to monitor weekly H&H to ensure stability. * Labs: * L ab: CBC Fingerstick (in house) (Collection Date & Time - 06/24/2024) Value Reference Range w bc 10.9 3.5 - 10 * l ym 27.7 15 - 50 * m id 7.7 2 - 15 * g ran 64.6 35 - 80 * r bc 3.87 3.5 - 5.5 * h gb 8.9 11.5 - 16.5 * h ct 28.1 35 - 55 * m cv 72.6 75 - 100 * m ch 23.0 25 - 35 * m chc 31.7 31 - 38 * p lat 308 100 - 400 * Dorothy Price 06/24/2024 2:47: 15 PM > Provider reviewed results while patient in office. * Procedure Codes: G 2211 Complex e/[place] [address] CAPILLARY BLOOD DRAW, 68014 CBC WITH AUTO DIFF * Follow Up: p rn * Images: Billing Information: * Visit Code: 89284 Office Visit, New Pt., Level 3. * Procedure Codes: G2211 Complex e/[place]. [address] CAPILLARY BLOOD DRAW. 25105 CBC WITH AUTO DIFF. * Electronic signature of Lonnie Nickerson MD on 10/22/2024 at 11:53 AM EDT Sign off status: Pending * Provider: Lonnie Nickerson M.D. Date: 0 06/24/2024 Generated for Latisha zimmerman/Allison/Lubaitting on: 0 10/22/2024 11:53 AM EDT History and Physical Notes * HPI (History of Present Illness) Category Sub-Category Detail Notes Category Not es HPI Patient is here today for Pt is here today to get re established and would like labs done. Pt sts she was in the hospital at the end of May. Pt sts her hemoglobin was 3.9 and sts when she left the hospital she was told to f/u with her PCP to recheck her hemoglobin. Pt daughter sts she is now under hospice care Examination Category Sub-Category Detail Notes Category Not es General Examination She come s in by wheelchair. She is alert and oriented. Color is somewhat pale. HEENT shows moist mucous membranes. No obvious jaundice. Lungs are clear to auscultation. Heart is regular with no murmurs. She has 3 fungating skin lesions, the largest of which is on the right abdomen. These are covered with a dressing today and are not disturbed to avoid further bleeding. Family shows me photographs on their phone.
--- OUTSIDE RECORDS SUMMARY | 2024-10-22 11:52 | XMS_ITS ---
Author Name Auto Generated, Auto Generated Organization [facility] Address [address] [place] [address] Phone [phone] Care Team Providers Care Precision Machinist Name Role Phone María Cm Unavailable [phone] Krystian Patterson Unavailable [phone] Leroy Villafuerte Unavailable [phone] Gabino Nickerson Unavailable ErinKarina huertas Koko Unavailable [phone] Functional Status No Results Mental Status No Results Allergies and Intolerances Name Onset Date Reaction Severity No Known Allergies (Allergy) SunJun 09 15:53:00 EST 2024 Encounters Program Name Primary Diagnosis Admission Date/Time Dis charge Date/Time Home-based Hospice Hepatomegaly, not elsewhere classified Sun Jun 08 19:00:00 EST 2024 Medications Medication Directions Start Date End Date Compazine 10 mg tablet 1 Tablet Oral PRN Every 6 Hours Indication: N/V Christel Oct 16 00:00:00 EDT 2024 FlagyL 250 mg tablet 1 Tablet Topical 1 Time Daily Indication: to wounds/ tumor areas to decrease odor SunJun 25 00:00:00 EDT 2024Jun 25 15:07:00 EDT 2024 FlagyL 250 mg tablet 1 Tablet Topical 1 Time Daily Indication: crush flagyl sprinkle to wounds/ tumor areas to decrease odor SunJun 25 00:00:00 EDT 2024 acetaminophen 500 mg tablet 1 Tablet Ora l PRN Every 4 Hours Indication: pain/ fever, no more 3000 mg in a 24 hr period SunJun 09 00:00:00 EST 2024 Compazine 10 mg tablet 1 TABLET Rectal P RN Every 6 Hours Nausea/Emesis SunJun 09 00:00:00 EST 2024 Christel Oct 16 16:09:00 EDT 2024 Treatment Plan Problems No Known Problems Vital Signs Vital Sign Measurement Date Systolic blood pressure 122 mm[Hg] SunSeptember 03 06:05:00 EDT 2024 Diastolic blood pressure 72 mm[Hg] SunSeptember 03 06:05:00 EDT 2024 Respiratory rate 20 /min SunSeptember 03 06:0 5:00 EDT 2024 Heart rate 76 /min SunSeptember 03 06:05 :00 EDT 2024 Systolic blood pressure 130 mm[Hg] SunAugust 13 06:00:00 EDT 2024 Diastolic blood pressure 70 mm[Hg] SunAugust 13 06:00:00 EDT 2024 Respiratory rate 20 /min SunAugust 13 06:0 0:00 EDT 2024 Heart rate 76 /min SunAugust 13 06:00 :00 EDT 2024 Systolic blood pressure 138 mm[Hg] [facility] Sep 25 08:30:00 EDT 2024 Diastolic blood pressure 80 mm[Hg] [facility] Sep 25 08:30:00 EDT 2024 Respiratory rate 20 /min [facility] Sep 25 08:3 0:00 EDT 2024 Heart rate 80 /min [facility] Sep 25 08:30 :00 EDT 2024 Systolic blood pressure 132 mm[Hg] SunOct 15 07:20:00 EDT 2024 Diastolic blood pressure 84 mm[Hg] SunOct 15 07:20:00 EDT 2024 Respiratory rate 20 /min SunOct 15 07:2 0:00 EDT 2024 Heart rate 86 /min SunOct 15 07:20 :00 EDT 2024 Systolic blood pressure 138 mm[Hg] SunJul 02 07:15:00 EDT 2024 Diastolic blood pressure 80 mm[Hg] SunJul 02 07:15:00 EDT 2024 Respiratory rate 20 /min SunJul 02 07:1 5:00 EDT 2024 Heart rate 80 /min SunJul 02 07:15 :00 EDT 2024 Systolic blood pressure 132 mm[Hg] SunJul 30 07:00:00 EDT 2024 Diastolic blood pressure 78 mm[Hg] SunJul 30 07:00:00 EDT 2024 Respiratory rate 20 /min SunJul 30 07:0 0:00 EDT 2024 Heart rate 80 /min SunJul 30 07:00 :00 EDT 2024 Systolic blood pressure 144 mm[Hg] SunJun 16 10:14:00 EDT 2024 Diastolic blood pressure 80 mm[Hg] SunJun 16 10:14:00 EDT 2024 Respiratory rate 20 /min SunJun 16 10:1 4:00 EDT 2024 Heart rate 94 /min SunJun 16 10:14 :00 EDT 2024 Systolic blood pressure 138 mm[Hg] SunOct 01 09:45:00 EDT 2024 Diastolic blood pressure 70 mm[Hg] SunOct 01 09:45:00 EDT 2024 Respiratory rate 20 /min SunOct 01 09:4 5:00 EDT 2024 Heart rate 78 /min SunOct 01 09:45 :00 EDT 2024 Body height 66 [in_i] SunJun 09 08:15 :00 EST 2024 Body weight 100 [lb_av] SunJun 09 08:15 :00 EST 2024 Systolic blood pressure 138 mm[Hg] SunJun 09 08:15:00 EST 2024 Diastolic blood pressure 70 mm[Hg] SunJun 09 08:15:00 EST 2024 Respiratory rate 24 /min SunJun 09 08:1 5:00 EST 2024 Heart rate 84 /min SunJun 09 08:15 :00 EST 2024 Systolic blood pressure 122 mm[Hg] SunJun 25 05:15:00 EDT 2024 Diastolic blood pressure 70 mm[Hg] SunJun 25 05:15:00 EDT 2024 Respiratory rate 20 /min SunJun 25 05:1 5:00 EDT 2024 Heart rate 76 /min SunJun 25 05:15 :00 EDT 2024 Systolic blood pressure 142 mm[Hg] SunJul 16 07:00:00 EDT 2024 Diastolic blood pressure 78 mm[Hg] SunJul 16 07:00:00 EDT 2024 Respiratory rate 20 /min SunJul 16 07:0 0:00 EDT 2024 Heart rate 76 /min SunJul 16 07:00 :00 EDT 2024 Systolic blood pressure 140 mm[Hg] SunSep 11 05:23:00 EDT 2024 Diastolic blood pressure 90 mm[Hg] SunSep 11 05:23:00 EDT 2024 Respiratory rate 20 /min SunSep 11 05:2 3:00 EDT 2024 Heart rate 80 /min SunSep 11 05:23 :00 EDT 2024 Systolic blood pressure 122 mm[Hg] SunOct 17 07:30:00 EDT 2024 Diastolic blood pressure 78 mm[Hg] SunOct 17 07:30:00 EDT 2024 Respiratory rate 20 /min SunOct 17 07:3 0:00 EDT 2024 Heart rate 80 /min SunOct 17 07:30 :00 EDT 2024 Systolic blood pressure 142 mm[Hg] SunJul 23 06:45:00 EDT 2024 Diastolic blood pressure 88 mm[Hg] SunJul 23 06:45:00 EDT 202 Respiratory rate 20 /min SunJul 23 06:4 5:00 EDT 202 Heart rate 94 /min SunJul 23 06:45 :00 EDT 202 Systolic blood pressure 140 mm[Hg] SunAugust 20 07:30:00 EDT 2024 Diastolic blood pressure 82 mm[Hg] SunAugust 20 07:30:00 EDT 2024 Respiratory rate 20 /min SunAugust 20 07:3 0:00 EDT 2024 Heart rate 76 /min SunAugust 20 07:30 :00 EDT 2024 Systolic blood pressure 128 mm[Hg] SunAug 06 06:30:00 EDT 2024 Diastolic blood pressure 70 mm[Hg] SunAug 06 06:30:00 EDT 2024 Respiratory rate 20 /min SunAug 06 06:3 0:00 EDT 2024 Heart rate 72 /min SunAug 06 06:30 :00 EDT 2024 Systolic blood pressure 138 mm[Hg] SunOct 07 09:30:00 EDT 2024 Diastolic blood pressure 88 mm[Hg] SunOct 07 09:30:00 EDT 2024 Respiratory rate 20 /min SunOct 07 09:3 0:00 EDT 2024 Heart rate 88 /min SunOct 07 09:30 :00 EDT 2024 Body weight 98.4 [lb_av] SunAugust 27 06:45 :00 EDT 2024 Systolic blood pressure 132 mm[Hg] SunAugust 27 06:45:00 EDT 2024 Diastolic blood pressure 82 mm[Hg] SunAugust 27 06:45:00 EDT 2024 Respiratory rate 20 /min SunAugust 27 06:4 5:00 EDT 2024 Heart rate 76 /min SunAugust 27 06:45 :00 EDT 2024 Reason for Referral
--- OUTSIDE RECORDS SUMMARY | 2024-10-22 11:54 | XMS_ITS | Patient Health Record ---
[facility] Organization [facility] Address [address] [facility] [address] [place] [id number] Care Team Providers Care [facility] Car[facility] Name Role Phone Lonnie Nickerson Primary [facility] [...] - [phone] M-Hemoglobin and Hematocrit Reviewed date:07/21/2024 10:15:11 PM Interpretation: Performing Lab: Notes/Report: PLEASE FAX RESULTS TO [phone] HGB 7.6 12.2-16.2 g/dL HCT 26.0 37.0-47.0 % M-Hemoglobin and Hematocrit Reviewed date:07/04/2024 05:54:00 PM Interpretation: Performing Lab: Notes/Report: HGB 8.3 12.2-16.2 g/dL HCT 28.2 37.0-47.0 % M-Hemoglobin and Hematocrit Reviewed date:09/04/2024 10:15:41 PM Interpretation:hgb 9, hct 29.9 Performing Lab: Notes/Report: HGB 9.0 12.2-16.2 g/dL HCT 29.9 37.0-47.0 % M-Hemoglobin and Hematocrit Reviewed date:07/23/2024 07:08:33 PM Interpretation: Performing Lab: Notes/Report: PLEASE FAX RESULTS TO [phone] HGB 9.2 12.2-16.2 g/dL HCT 30.1 37.0-47.0 % M-Hemoglobin and Hematocrit Reviewed date:09/12/2024 09:38:58 AM Interpretation:hgb 9.0, hct 30.3 Performing Lab: Notes/Report: HGB 9.0 12.2-16.2 g/dL HCT 30.3 37.0-47.0 % M-Hemoglobin and Hematocrit Reviewed date:09/26/2024 10:07:26 AM Interpretation: Performing Lab: Notes/Report: HGB 9.4 12.2-16.2 g/dL HCT 31.3 37.0-47.0 % M-Hemoglobin and Hematocrit Reviewed date:08/28/2024 08:14:56 AM Interpretation: Performing Lab: Notes/Report: HGB 9.2 12.2-16.2 g/dL HCT 30.6 37.0-47.0 % H-URC Reviewed date:08/02/2024 09:48:56 PM Interpretation: Performing Lab: Notes/Report: U500.0100 TRANSFUSED PRODUCT: Red Blood Cells COUNT: 1 H-Type and Screen Reviewed date:08/02/2024 09:48:57 PM Interpretation: Performing Lab: Notes/Report: Other not on MD order. Comment: symptomatic anemia RBC Product Order Reason Other Timeframe for Post-Transf H/H other (specify) BT A Positive ABS NEGATIVE H-Crossmatch Reviewed date:08/02/2024 09:48:57 PM Interpretation: Performing Lab: Notes/Report: Other not on MD order. Comment: symptomatic anemia RBC Product Order Reason Other Timeframe for Post-Transf H/H other (specify) XM UNIT NUMBER: [id number] XM COMPATIBLE: Y XM PRODUCT: Red Blood Cells XM SOURCE: [facility] XM BLOOD TYPE: A Positive XM VOLUME: 250mL XM CROSSMATCH COMPONENTS: XMNOTE Notification Notified [facility] Tracey Mahmood [place] 08/01/24 1054. M-Hemoglobin and Hematocrit Reviewed date:08/28/2024 08:11:00 AM Interpretation: Performing Lab: Notes/Report: HGB 9.3 12.2-16.2 g/dL HCT 31.2 37.0-47.0 % M-Hemoglobin and Hematocrit Reviewed date:07/31/2024 11:21:19 AM Interpretation:hgb 7.7, hct 26.3 Performing Lab: Notes/Report: HGB 7.7 12.2-16.2 g/dL HCT 26.3 37.0-47.0 % M-Hemoglobin and Hematocrit Reviewed date:08/06/2024 06:28:25 PM Interpretation:HGB 9.5 Performing Lab: Notes/Report: HGB 9.5 12.2-16.2 g/dL HCT 31.5 37.0-47.0 % M-Hemoglobin and Hematocrit Reviewed date:08/06/2024 06:28:25 PM Interpretation:HGB 9.5 Performing Lab: Notes/Report: HGB 9.5 12.2-16.2 g/dL HCT 31.5 37.0-47.0 % H-Hemoglobin Reviewed date:08/14/2024 01:25:55 PM Interpretation: Performing Lab: Notes/Report: HGB 9.0 12.2-16.2 g/dL HCT Reviewed date:08/14/2024 01:25:55 PM Interpretation: Performing Lab: Notes/Report: HCT 29.9 37.0-47.0 % Reason For Referral No Information Problems Problem Type SNOMED Code ICD Code Onset Dates Problem Status W/U Status Risk Notes Problem Elevated blood pressure reading without diagnosis of hypertension (366131491) Elevated blood pressure reading without diagnosis of hypertension (796.2) Active confirmed Problem Cancer (487861919) Cancer (C80.1) Active confirmed -- unknow n primary Problem Anemia in neoplastic disease (105367204) 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 Vital Signs Heart Rate 83 /min 06/24/2024 Blood pressure diastolic 78 mm Hg 06/24/2024 Blood pressure systolic 116 mm Hg 06/24/2024 Weight 98.4 lbs 06/24/2024 Encounters Encounter Location Date Provider Diagnosis [facility] [address] [facility] [address] [place] [id number] 06/24/2024 R Oscar Krishan Cancer C80.1 and Anemia in neoplastic disease D63.0 [facility] [address] [facility] [address] [place], [place] [id number] 06/09/2024 R Oscar Krishan [facility] [address] [place], [place] [id number] 06/19/2024 R Oscar Krishan [facility] [address] [place] [id number] 06/25/2024 R Oscar Krishan [facility] [address] [place], [place] [id number] 07/04/2024 R Oscar Krishan [facility] [address] [place], [place] [id number] 07/21/2024 R Oscar Krishan [facility] [address] [place], [place] [id number] 07/31/2024 R Oscar Krishan [facility] [address] [place] [id number] 08/06/2024 R Oscar Krishan [facility] [address] [place], [place] [id number] 08/14/2024 R Oscar Krishan [facility] [address] [place], [place] [id number] 08/28/2024 R Oscar Krishan [facility] [address] [place] [id number] 09/04/2024 R Oscar Krishan [facility] [address] [place], [place] [id number] 09/12/2024 R Oscar Krishan [facility] [address] [place], [place] [id number] 09/26/2024 R Oscar Krishan Assessments Encounter Date Diagnosis (ICD Code) Assessment Notes Treatment Notes Treatment Clinical Notes Section Notes 06/24/2024 Cancer (ICD-10 - C80.1) -- unknown primary Continue hospice care 06/24/2024 Anemia in neoplastic disease (ICD-10 - D63.0) Anemia appears stable and has improved since discharge from the hospital. Will have hospitalist continue to monitor weekly H&H to ensure stability. 06/12/2024 Other Discharge summary with available lab/diagnostic imaging results obtained and reviewed. Discharge medication list reconciled. Appropriate counseling provided. Moderate Complexity Plan Of Treatment Pending Test Test Name Order Date H-CBC 06/20/2024 Insurance Providers Payer Name Payer Address Payer Phone Subscriber Number Group Number Insured Name Patient Relationship to Insured Coverage Start Date Coverage End Date MEDICARE PART B [address] [address] [place] [id number] [phone] [id number] NATIVIDAD CRAIG Self - patient is the insured Medical (General) History Medical History History ICD Code Pt has skin cancer as well a s places on her uterus and liver. Pt did not want chemo treatment. Hospice Surgical History Surgery Date(Month/Year) tubal 1985
[2024-10-22 12:06] LABS: Hematocrit 35.8 % (37.0-47.0); Hemoglobin 10.8 g/dL (12.2-16.2)
== END 2024-10-22 23:59 | disposition home or self-care (01) ==
LOC: LAB.DROPOF 11:51
PROVIDERS: PCP Family Medicine; Visit Provider Family Medicine
DX: R16.0 Hepatomegaly, not elsewhere classified (principal); D64.9 Anemia, unspecified
CPT/HCPCS: 85014; 85018